=== PATIENT | male | born 1980 | race Caucasian/White ===

== ENCOUNTER → 2024-04-24 | Outpatient (REF) | payer BC | LOC: M SFHCDERM 17:00 | PROVIDERS: ATTEND Physician Assistant | DX: L08.9 Local infection of the skin and subcutaneous tissue, unspecified (principal) ==

== ENCOUNTER → 2024-06-12 | Outpatient (REF) | payer BC | LOC: M SFHCDERM 17:57 | PROVIDERS: ATTEND Physician Assistant | DX: D48.5 Neoplasm of uncertain behavior of skin (principal) ==

== ENCOUNTER → 2024-12-19 | Outpatient (REF) | payer BC, OTHER | LOC: M SMT 13:28 | PROVIDERS: ATTEND Urology | DX: Z30.2 Encounter for sterilization (principal) ==